=== PATIENT | female | born 1990 | race African-American/Black ===

== ENCOUNTER 2017-10-10 11:31 | Emergency (ER) | payer OTHER ==
[~2017-10-10] VITALS: Ht 165.1 cm; Wt 74.7 kg
[2017-10-10 12:09] LABS: HEMATOCRIT 38.4 % (36.0-46.0); MCH 30.9 PG (29.0-34.0); MCHC 33.9 G/DL (30.0-36.0); MCV 91.2 FL (83-99); PLATELET COUNT 262 K/uL (156-360); RBC DIS.WIDTH-CV 12.5 % (11.8-14.6); RBC DIS.WIDTH-SD 41.5 % (39-53); RED BLOOD COUNT 4.21 M/uL (3.80-5.20); WHITE BLOOD COUNT 7.2 K/uL (4.1-10.2)
[2017-10-10 12:23] LABS: ALBUMIN 4.3 g/dL (3.2-4.8); CHLORIDE 108 mEq/L (99-109); POTASSIUM 4.4 mEq/L (3.7-5.4); SODIUM 140 mEq/L (136-147)
[2017-10-10 12:24] LABS: APPEARANCE CLEAR ((CLEAR)); BILIRUBIN NEGATIVE; BLOOD NEGATIVE; COLOR YELLOW ((YELLOW)); GLUCOSE (STRIP) NEGATIVE; KETONES NEGATIVE; LEUKOCYTES NEGATIVE; NITRITE NEGATIVE; PROTEIN (STRIP) NEGATIVE; SPECIFIC GRAVITY 1.024 (1.000-1.030); UCUL ADDED? NO; UROBILINOGEN 0.2 MG/DL (0.2-1.0)
[2017-10-10 12:25] LABS: GLUCOSE 90 mg/dL (70-99); TOTAL PROTEIN 7.7 g/dL (6.4-8.3)
[2017-10-10 12:29] LABS: ALKALINE PHOSPHATASE 56 IU/L (3-129); CREATININE 0.8 mg/dL (0.6-1.3)
[2017-10-10 12:30] LABS: UREA NITROGEN (BUN) 9 mg/dL (9-23)
[2017-10-10 12:31] LABS: AST (GOT) 18 IU/L (2-34)
[2017-10-10 12:32] LABS: ALT (GPT) 12 IU/L (3-49)
[2017-10-10 12:34] LABS: GFR ESTIMATE (CALCULATED) > 59 mL/min/
[2017-10-10 12:39] LABS: QUANTITATIVE HCG < 4.0 MIU/ML
[2017-10-10 15:30] VITALS: BP 142/105
== END 2017-10-10 15:31 | disposition home or self-care (01) ==
LOC: EME 11:31
DX: R10.31 Right lower quadrant pain (principal)
CPT/HCPCS: 74177; 80053; 81003; 84702; 85027; 99281; 99284; J7030